=== PATIENT | male | born 1965 | race Caucasian/White ===

== ENCOUNTER 2019-02-25 10:29 | Emergency (ER) | payer OTHER, SELFPAY ==
[2019-02-25 10:30] VITALS: BP 183/118; PULSE 94; RESP 16; TEMP 36.6; O2SAT 97; BMI 24.3
--- NOTE | 2019-02-25 10:32 | ED.RN ---
PT STATES THIS HAPPENED AT WORK BUT CHOSES NOT TO DO WORKMANS COMP.
--- NOTE | 2019-02-25 10:54 | RAD_ITS ---
STUDY: X-RAY - RIGHT HAND REASON FOR EXAM: Male, 53 years old. Laceration of the thumb. TECHNIQUE: 3 view(s) of the hand. COMPARISON: None. FINDINGS: Normal radiocarpal articulation. Normal distal radioulnar joint. Normal visualized carpal bones. Normal carpal articulations Normal carpometacarpal articulation of the thumb. Normal second through fifth carpometacarpal joints. Normal metacarpi. Normal metacarpophalangeal joint of the thumb. Normal interphalangeal joint of the thumb. Normal proximal and distal phalanges of the thumb. Normal metacarpophalangeal joints of the second through fifth fingers. Normal proximal and distal interphalangeal joints of the second through fifth fingers. Normal phalanges of the second through fifth fingers. The soft tissue structures are unremarkable. RAD/Hand Min 3 Views IMPRESSION: Normal x-ray examination of the hand. Electronically Signed: Vladimir Hernandez, at 11:27 EDT , Service support ,
[2019-02-25] MEDS: Diphth,Pertuss(Acell),Tet Vac 0.5 ML Vial IM (11:10)
--- NOTE | 2019-02-25 11:16 | ED.VIS.UPPEX ---
History of Present Illness Informant: Patient Occurred: Today Mechanism/Context: Incised Onset: Today Context: Gradual Onset Timing: Continuous Quality of Pain: Sharp Location: Right thumb Current Severity: Moderate Maximum Severity: Severe Worsened by: Movement and palpation Relieved by: Rest Associated Symptoms: Negative for: Parasthesia, Weakness, Loss of Funtion Narrative: 53-year-old male [id number] presents with a laceration to his right thumb. This occurred just prior to arrival on a slicer. He was slicing meat. He denies any other injuries. His last tetanus was more than 10 years ago. He denies numbness tingling or weakness. He is not on blood thinners. Tetanus Immunization: >10 years Prior similar symptoms: No Recent Illness/Hospitalization: No <Manuel Reich - Last Filed: 02/25/19 11:42> <Kwan Scott - Last Filed: 02/25/19 13:19> Chief Complaint: Laceration Past Medical History Prior records reviewed: Yes Past Medical History: None Surgical History: no surgical history Lives: With Family Smoking Status: Former smoker <Manuel Reich - Last Filed: 02/25/19 11:42> <Kwan Scott - Last Filed: 02/25/19 13:19> - Allergies and Home Meds Allergies/Adverse Reactions: Allergies No Known Allergies Allergy (Verified 04/09/17 19:22) Primary Care Physician: Brian Felder MD [Primary Care Provider] - Review of Systems All systems negative except as indicated Skin: Reports: Wounds Neurological: Denies: Weakness, Parasthesia, Numbness <Manuel Reich - Last Filed: 02/25/19 11:42> Physical Exam Vital Signs/Narrative: Vital Signs Temp Pulse Resp BP Pulse Ox 02/25/19 10:30 98 F 94 16 183/118 H 97 Inital Vital Signs reviewed: Yes Right Hand: - - 5 cm laceration to the right thumb. It is across the finger pad with slight extension into the nail. There is a less than 1 cm laceration through the nail however the nail is still intact and it does not go all the way through the nail. He is able to flex and extend at the IP joint actively normally and the nail remains in place. He has normal capillary refill and sensation. He has normal two-point discrimination. He is not having any significant bony tenderness. There is no pulsatile bleeding. No other injuries are noted. <Manuel Reich - Last Filed: 02/25/19 11:42> Vital Signs/Narrative: Vital Signs Temp Pulse Resp BP Pulse Ox 02/25/19 11:58 84 16 138/72 H 98 02/25/19 10:30 98 F 94 16 183/118 H 97 <Kwan Scott - Last Filed: 02/25/19 13:19> Diagnostic/Tx/Re-eval right hand x-ray unremarkable, interpreted by ED physician - Medical Decision Making Tetanus was updated. X-ray showed no acute fracture. No foreign body. Patient has a thumb laceration that partially extends into the nail. It only minimally does this. The nail is intact. There is no active bleeding from the nail. The laceration on the finger pad was repaired. Patient was placed in a splint and a dressing. Discussed proper wound care as well as signs of infection to monitor for. Advised follow-up in 7 to days for removal or sooner if signs of infection are noted. <Manuel Reich - Last Filed: 02/25/19 11:42> - Medical Decision Making I saw the patient in conjunction with the physician printing bindery assistant. He has a laceration over his right thumb involving the nailbed. X-rays were negative for fracture. Tetanus was updated. Wound was closed by the physician printing bindery assistant. Nailbed repair was discussed. His wound was pretty clean and straight. We felt that it would heal using the nail as splinting. Patient will follow-up with his doctor for recheck. Return for any complications right away. <Kwan Scott - Last Filed: 02/25/19 13:19> Procedures - Lacerations No standard instances Depth: Skin Shape: Linear Prep: Sterile Conditions, Betadine Laceration Repair: Nerve block - digital block right thumb Irrigated (ml): 120 Number of Sutures/[place]: 6 Suture Information: Simple, 5-0 <Manuel Reich - Last Filed: 02/25/19 11:42> ED Disposition <Manuel Reich - Last Filed: 02/25/19 11:42> <Kwan Scott - Last Filed: 02/25/19 13:19> - Plan for ED Patient: Disposition: Home or Assisted Living Diagnosis: Laceration of right thumb with damage to nail Instructions: LACERATION, Extrem (Suture, Staple or Tape) Referrals: Brian Felder MD [Primary Care Provider] -
[2019-02-25 11:58] VITALS: BP 138/72; PULSE 84; RESP 16; O2SAT 98
== END 2019-02-25 12:00 | disposition home or self-care (01) ==
PROVIDERS: Emergency Provider Physician Assistant Medical; Family Provider Family Medicine; PCP Family Medicine
DX: S61.111A Laceration without foreign body of right thumb with damage to nail, initial encounter (principal); W26.8XXA Contact with other sharp object(s), not elsewhere classified, initial encounter; Y93.89 Activity, other specified; Y92.9 Unspecified place or not applicable; Y99.9 Unspecified external cause status; Z23 Encounter for immunization; Z87.891 Personal history of nicotine dependence
CPT/HCPCS: 12002; 73130; 90471; 90715; 99283

== ENCOUNTER 2023-12-25 20:37 | Emergency (ER) | payer OTHER, SELFPAY ==
[2023-12-25] VITALS (11 sets, daily range): BP systolic 55–132; BP diastolic 32–78; PULSE 46–89; RESP 17–87; TEMP 34.4–35.5; O2SAT 50–98
--- NOTE | 2023-12-25 21:01 | CT_ITS ---
INDICATION: head injury EXAMINATION: CT BRAIN - CT Head or Brain W/O Contrast Injection TECHNIQUE: Multiple axial images were obtained of the head without intravenous contrast. A radiation dose optimization technique was used for this scan. IV Contrast dosage and agent: None. RADIATION DOSAGE (If Supplied By Facility): CTDIvol = ( 44.99 ) mGy, DLP = ( 812.98 ) mGycm COMPARISON: No relevant prior comparison study available FINDINGS: BRAIN PARENCHYMA: No intra- or extra-axial hemorrhage. No evidence of acute infarct. No intracranial mass or mass effect. There is preservation of the doll/white matter interface. Posterior fossa structures are unremarkable. No parenchymal abnormality. CSF SPACES: No cerebral volume loss. No hydrocephalus. Basal cisterns are patent. CALVARIUM, SKULL BASE, PARANASAL SINUSES AND MASTOID AIR CELLS: Partially opacified right sphenoid sinus and right maxillary sinus. Remaining paranasal sinuses and mastoid air cells are well-aerated.. There appears to be a fracture at the tip of the nasal bone with associated gas in the soft tissues.. No discrete lytic or blastic abnormalities. ORBITS: Both globes, extraocular muscles, optic nerves and retrobulbar fat appear unremarkable. CT/Brain/Head without Contrast IMPRESSION: No acute intracranial finding. Nasal bone fracture noted with soft tissue gas present. Electronically Signed: Randell Barclay MD at 22:12 EDT ,
[2023-12-25] MEDS: Norepinephrine 8 MG in 0.9% Normal Saline (250mL Bag) 242 ML 9.4 MG CONT INF (21:09)
--- NOTE | 2023-12-25 21:45 | RAD_ITS ---
INDICATION: NG/OG PLACEMENT. EXAMINATION/TECHNIQUE: X-RAY - XR Abdomen 1 View COMPARISON: No relevant prior comparison study available FINDINGS: BOWEL GAS PATTERN: Non-obstructive. No bowel or stomach distention. Enteric tube terminates in the stomach in good position. FREE AIR: Not assessed on a single supine view. ORGANOMEGALY: Not seen. CALCIFICATIONS: No abnormal calcifications observed. LOWER CHEST: No acute pathology. BONES AND SOFT TISSUES: No acute pathology. RAD/Abdomen Single View IMPRESSION: Enteric tube terminating in the stomach. Non-obstructive bowel gas pattern. Electronically Signed: Randell Barclay MD at 22:14 EDT ,
--- NOTE | 2023-12-25 21:45 | RAD_ITS ---
INDICATION: tube placement EXAMINATION/TECHNIQUE: X-RAY - XR Chest 1 View COMPARISON: No relevant prior comparison study available FINDINGS: LINES/DEVICES: Endotracheal tube terminates 4 cm above the laney. Enteric tube terminates in the stomach. LUNGS: The lungs are well expanded. Hazy opacities throughout the right lung. No pleural effusion. No dense consolidation. No pneumothorax. MEDIASTINUM AND CARDIOVASCULAR STRUCTURES: Cardiac silhouette not enlarged. Central airways and mediastinal contour are unremarkable. BONES AND SOFT TISSUES: No acute abnormality. RAD/Chest 1 View (Portable) IMPRESSION: Endotracheal tube terminating 4 cm above the laney. Hazy right lung opacities could be infectious/inflammatory versus asymmetric edema. Aspiration possible. Electronically Signed: Randell Barclay MD at 22:15 EDT ,
--- NOTE | 2023-12-25 22:14 | EKG12_ITS ---
Test Reason : CODE BLUE Blood Pressure : / mmHG Vent. Rate : 063 BPM Atrial Rate : 066 BPM P-R Int : 000 ms QRS Dur : 104 ms QT Int : 548 ms P-R-T Axes : 065 -66 061 degrees QTc Int : 560 ms Critical Test Result: Long QTc , AV Block Sinus rhythm with A-V dissociation and Junctional rhythm with Sinus/atrial capture Left axis deviation Pulmonary disease pattern Possible anterior [place] Abnormal ECG Confirmed by GLENIS ARMENTA, GAYATRI ([id number]), editor department MACHELLE BUTLER ([id number]) on 12/30/2023 10:50:51 A M Referred By: RICHMOND Confirmed By:VALERIA GALVIN MD
[2023-12-25 22:24] LABS: Absolute Lymphocyte Count 2.03 X10^3/uL (0.83-4.51); Absolute Neutrophil Count 1.9 X10^3/uL (2.0-7.7); Basophil# 0.03 X10^3/uL; Basophil% 0.7 % (0-1); Eosinophil# 0.08 X10^3/uL; Eosinophils% 1.8 % (0-5); Hematocrit 46.8 % (40-54); Hemoglobin 13.2 g/dL (13.0-16.5); Lymphocyte # 2.03 X10^3/ul (0.83-4.51); Lymphocyte % 45.4 % (19-41); Mean Corp Hgb Conc 28.2 g/dL (32-36); Mean Corpuscular Hgb 29.4 pg (27.0-32.0); Mean Corpuscular Volume 104.2 fL (80-94); Monocyte# 0.38 X10^3/uL; Monocyte% 8.5 % (0-10); NRBC Flagged by Analyzer 0 % (0-5); Neutrophil # 1.89 X10^3/uL (2.7-7.7); Neutrophil % 42.3 % (47-70); Platelet Count 187 K/mm3 (150-450); RBC Distribution Width CV 13.4 % (11.6-14.6); RBC Distribution Width SD 52.1 fl (35.1-43.9); Red Blood Count 4.49 M/mm3 (4.6-6.2); White Blood Count 4.5 K/mm3 (4.4-11.0)
[2023-12-25 22:28] LABS: International Normalized Ratio 1.6; Prothrombin Time (Protime)PT. 18.6 SECONDS (11.7-14.9)
[2023-12-25 22:29] LABS: Partial Thromboplast Time 35.4 Seconds (24.1-36.2)
--- NOTE | 2023-12-25 22:33 | EX.ED.CRITCA ---
HPI <Dr. Williams Kerr, DO - Last Filed: 12/27/23 10:17> History of Present Illness Chief Complaint: CPR Informant: family and EMS Limited: coma Onset/Context/Timing Onset: Today Context: Sudden Onset Timing: Continuous Narrative Narrative: Patient presents in cardiopulmonary arrest. Patient was hit in the head earlier today by a garage door. Family noted some bleeding from his nose. Family called EMS. Upon EMS arrival, they attempted to ambulate the patient to the bathroom to help get his nose cleaned up. EMS reports that patient had a shaking episode and then went into cardiac arrest on the way to the emergency department. EMS started CPR immediately. Patient was given a milligram of epinephrine by EMS. PFSH <Dr. Williams Kerr, DO - Last Filed: 12/27/23 10:17> [facility], [facility] Medical History unable to obtain unable to obtain Allergy/AdvReac Type Severity Reaction Status Date / Time No Known Allergies Allergy Verified 12/26/23 01:44 Family History unable to obtain Surgical History unable to obtain unable to obtain Social History Smoking Status: Former smoker ROS <Dr. Williams Kerr, DO - Last Filed: 12/27/23 10:17> ROS ED Review of Systems ROS Unobtainable: due to endotracheal tube and due to mental status EXAM <Dr. Williams Kerr, DO - Last Filed: 12/27/23 10:17> Physical Exam Const Vital Signs: 12/25/23 21:09 12/25/23 21:12 12/25/23 21:15 Temperature Temperature Source Pulse Rate 84 76 54 L Pulse Rate [13] Pulse Rate [14] Pulse Rate [1] Pulse Rate [20] Pulse Rate [2] Pulse Rate [3] Pulse Rate [4] Pulse Rate [5] Pulse Rate [8] Respiratory Rate 18 24 H 19 H Respiratory Rate [13] Respiratory Rate [14] Respiratory Rate [1] Respiratory Rate [20] Respiratory Rate [2] Respiratory Rate [3] Respiratory Rate [4] Respiratory Rate [5] Respiratory Rate [8] Respiratory Effort Respiratory Depth Respiratory Pattern Blood Pressure 91/62 72/54 L 57/40 L Blood Pressure [13] Blood Pressure [14] Blood Pressure [1] Blood Pressure [20] Blood Pressure [2] Blood Pressure [3] Blood Pressure [4] Blood Pressure [8] Blood Pressure Mean 71 60 45 Blood Pressure Position Supine Blood Pressure Location Left Arm Pulse Ox 74 68 64 Oxygen Delivery Method Mechanical Ventilator Mechanical Ventilator Mechanical Ventilator Fraction of Inspired Oxygen (FIO2) 100 100 100 12/25/23 21:50 12/25/23 22:00 12/25/23 22:04 Temperature Temperature Source Pulse Rate 75 61 Pulse Rate [13] 64 Pulse Rate [14] 68 Pulse Rate [1] 84 Pulse Rate [20] 87 Pulse Rate [2] 85 Pulse Rate [3] 54 L Pulse Rate [4] 46 L Pulse Rate [5] 68 Pulse Rate [8] 60 Respiratory Rate 23 H 24 H Respiratory Rate [13] 18 Respiratory Rate [14] 18 Respiratory Rate [1] 20 H Respiratory Rate [20] 18 Respiratory Rate [2] 24 H Respiratory Rate [3] 19 H Respiratory Rate [4] 19 H Respiratory Rate [5] 20 H Respiratory Rate [8] 17 Respiratory Effort Respiratory Depth Respiratory Pattern Normal Blood Pressure 72/43 L Blood Pressure [13] 108/63 Blood Pressure [14] 107/62 Blood Pressure [1] 91/62 Blood Pressure [20] 110/78 Blood Pressure [2] 72/54 L Blood Pressure [3] 57/40 L Blood Pressure [4] 55/32 L Blood Pressure [8] 104/61 Blood Pressure Mean 52 Blood Pressure Position Blood Pressure Location Pulse Ox 98 92 Oxygen Delivery Method Mechanical Ventilator Ambu-Bag Fraction of Inspired Oxygen (FIO2) 100 100 12/25/23 22:13 12/25/23 22:50 12/25/23 23:11 Temperature 96 F L Temperature Source Temporal Pulse Rate 88 86 Pulse Rate [13] Pulse Rate [14] Pulse Rate [1] Pulse Rate [20] Pulse Rate [2] Pulse Rate [3] Pulse Rate [4] Pulse Rate [5] Pulse Rate [8] Respiratory Rate 18 87 H Respiratory Rate [13] Respiratory Rate [14] Respiratory Rate [1] Respiratory Rate [20] Respiratory Rate [2] Respiratory Rate [3] Respiratory Rate [4] Respiratory Rate [5] Respiratory Rate [8] Respiratory Effort Respiratory Depth Respiratory Pattern Blood Pressure 121/72 H 128/78 H Blood Pressure [13] Blood Pressure [14] Blood Pressure [1] Blood Pressure [20] Blood Pressure [2] Blood Pressure [3] Blood Pressure [4] Blood Pressure [8] Blood Pressure Mean 88 94 Blood Pressure Position Blood Pressure Location Pulse Ox 91 92 Oxygen Delivery Method Mechanical Ventilator Mechanical Ventilator Fraction of Inspired Oxygen (FIO2) 100 12/25/23 23:14 12/25/23 23:17 12/25/23 23:32 Temperature Temperature Source Pulse Rate 87 Pulse Rate [13] Pulse Rate [14] Pulse Rate [1] Pulse Rate [20] Pulse Rate [2] Pulse Rate [3] Pulse Rate [4] Pulse Rate [5] Pulse Rate [8] Respiratory Rate 25 H Respiratory Rate [13] Respiratory Rate [14] Respiratory Rate [1] Respiratory Rate [20] Respiratory Rate [2] Respiratory Rate [3] Respiratory Rate [4] Respiratory Rate [5] Respiratory Rate [8] Respiratory Effort Mechanically Ventilated Mechanically Ventilated Respiratory Depth Normal Respiratory Pattern Normal Blood Pressure 132/68 H Blood Pressure [13] Blood Pressure [14] Blood Pressure [1] Blood Pressure [20] Blood Pressure [2] Blood Pressure [3] Blood Pressure [4] Blood Pressure [8] Blood Pressure Mean 89 Blood Pressure Position Blood Pressure Location Pulse Ox 91 Oxygen Delivery Method Mechanical Ventilator Fraction of Inspired Oxygen (FIO2) 100 12/25/23 23:33 12/26/23 00:00 12/26/23 00:05 Temperature 94 F L 94.2 F L Temperature Source Core Core Pulse Rate 89 90 Pulse Rate [13] Pulse Rate [14] Pulse Rate [1] Pulse Rate [20] Pulse Rate [2] Pulse Rate [3] Pulse Rate [4] Pulse Rate [5] Pulse Rate [8] Respiratory Rate 26 H 27 H Respiratory Rate [13] Respiratory Rate [14] Respiratory Rate [1] Respiratory Rate [20] Respiratory Rate [2] Respiratory Rate [3] Respiratory Rate [4] Respiratory Rate [5] Respiratory Rate [8] Respiratory Effort Respiratory Depth Respiratory Pattern Blood Pressure 109/74 107/72 Blood Pressure [13] Blood Pressure [14] Blood Pressure [1] Blood Pressure [20] Blood Pressure [2] Blood Pressure [3] Blood Pressure [4] Blood Pressure [8] Blood Pressure Mean 85 83 Blood Pressure Position Blood Pressure Location Pulse Ox 90 74 88 Oxygen Delivery Method Mechanical Ventilator Mechanical Ventilator Mechanical Ventilator Fraction of Inspired Oxygen (FIO2) 100 100 100 12/26/23 00:17 12/26/23 00:17 12/26/23 00:30 Temperature 94.4 F L Temperature Source Core Pulse Rate 92 95 93 Pulse Rate [13] Pulse Rate [14] Pulse Rate [1] Pulse Rate [20] Pulse Rate [2] Pulse Rate [3] Pulse Rate [4] Pulse Rate [5] Pulse Rate [8] Respiratory Rate 18 28 H Respiratory Rate [13] Respiratory Rate [14] Respiratory Rate [1] Respiratory Rate [20] Respiratory Rate [2] Respiratory Rate [3] Respiratory Rate [4] Respiratory Rate [5] Respiratory Rate [8] Respiratory Effort Respiratory Depth Respiratory Pattern Blood Pressure 108/72 118/79 124/72 H Blood Pressure [13] Blood Pressure [14] Blood Pressure [1] Blood Pressure [20] Blood Pressure [2] Blood Pressure [3] Blood Pressure [4] Blood Pressure [8] Blood Pressure Mean 84 92 89 Blood Pressure Position Blood Pressure Location Pulse Ox 78 85 81 Oxygen Delivery Method Mechanical Ventilator Mechanical Ventilator Mechanical Ventilator Fraction of Inspired Oxygen (FIO2) 100 100 100 12/26/23 00:30 12/26/23 01:00 12/26/23 01:30 Temperature 95.2 F L 95.2 F L Temperature Source Core Core Pulse Rate 90 94 94 Pulse Rate [13] Pulse Rate [14] Pulse Rate [1] Pulse Rate [20] Pulse Rate [2] Pulse Rate [3] Pulse Rate [4] Pulse Rate [5] Pulse Rate [8] Respiratory Rate 26 H 26 H 30 H Respiratory Rate [13] Respiratory Rate [14] Respiratory Rate [1] Respiratory Rate [20] Respiratory Rate [2] Respiratory Rate [3] Respiratory Rate [4] Respiratory Rate [5] Respiratory Rate [8] Respiratory Effort Respiratory Depth Respiratory Pattern Normal Blood Pressure 124/80 H 138/80 H Blood Pressure [13] Blood Pressure [14] Blood Pressure [1] Blood Pressure [20] Blood Pressure [2] Blood Pressure [3] Blood Pressure [4] Blood Pressure [8] Blood Pressure Mean 94 99 Blood Pressure Position Blood Pressure Location Pulse Ox 76 85 85 Oxygen Delivery Method Mechanical Ventilator Mechanical Ventilator Fraction of Inspired Oxygen (FIO2) 100 100 100 12/26/23 01:31 12/26/23 01:54 12/26/23 02:00 Temperature 96.4 F L Temperature Source Core Pulse Rate 96 92 93 Pulse Rate [13] Pulse Rate [14] Pulse Rate [1] Pulse Rate [20] Pulse Rate [2] Pulse Rate [3] Pulse Rate [4] Pulse Rate [5] Pulse Rate [8] Respiratory Rate 28 H 30 H 30 H Respiratory Rate [13] Respiratory Rate [14] Respiratory Rate [1] Respiratory Rate [20] Respiratory Rate [2] Respiratory Rate [3] Respiratory Rate [4] Respiratory Rate [5] Respiratory Rate [8] Respiratory Effort Respiratory Depth Respiratory Pattern Blood Pressure 127/79 H 84/41 L 118/76 Blood Pressure [13] Blood Pressure [14] Blood Pressure [1] Blood Pressure [20] Blood Pressure [2] Blood Pressure [3] Blood Pressure [4] Blood Pressure [8] Blood Pressure Mean 95 55 90 Blood Pressure Position Blood Pressure Location Pulse Ox 85 90 97 Oxygen Delivery Method Mechanical Ventilator Mechanical Ventilator Mechanical Ventilator Fraction of Inspired Oxygen (FIO2) 100 100 100 12/26/23 02:14 12/26/23 02:30 12/26/23 02:45 Temperature 95.9 F L 96.5 F L 96.8 F L Temperature Source Core Core Core Pulse Rate 98 94 94 Pulse Rate [13] Pulse Rate [14] Pulse Rate [1] Pulse Rate [20] Pulse Rate [2] Pulse Rate [3] Pulse Rate [4] Pulse Rate [5] Pulse Rate [8] Respiratory Rate 26 H 31 H 29 H Respiratory Rate [13] Respiratory Rate [14] Respiratory Rate [1] Respiratory Rate [20] Respiratory Rate [2] Respiratory Rate [3] Respiratory Rate [4] Respiratory Rate [5] Respiratory Rate [8] Respiratory Effort Respiratory Depth Respiratory Pattern Blood Pressure 154/90 H 109/74 103/72 Blood Pressure [13] Blood Pressure [14] Blood Pressure [1] Blood Pressure [20] Blood Pressure [2] Blood Pressure [3] Blood Pressure [4] Blood Pressure [8] Blood Pressure Mean 111 85 82 Blood Pressure Position Blood Pressure Location Pulse Ox 93 95 98 Oxygen Delivery Method Mechanical Ventilator Mechanical Ventilator Mechanical Ventilator Fraction of Inspired Oxygen (FIO2) 100 100 100 12/26/23 03:00 12/26/23 03:00 12/26/23 04:00 Temperature 97.1 F L 97.1 F L 97.1 F L Temperature Source Core Core Core Pulse Rate 94 95 94 Pulse Rate [13] Pulse Rate [14] Pulse Rate [1] Pulse Rate [20] Pulse Rate [2] Pulse Rate [3] Pulse Rate [4] Pulse Rate [5] Pulse Rate [8] Respiratory Rate 26 H 28 H 17 Respiratory Rate [13] Respiratory Rate [14] Respiratory Rate [1] Respiratory Rate [20] Respiratory Rate [2] Respiratory Rate [3] Respiratory Rate [4] Respiratory Rate [5] Respiratory Rate [8] Respiratory Effort Respiratory Depth Respiratory Pattern Blood Pressure 128/82 H 121/83 H 118/79 Blood Pressure [13] Blood Pressure [14] Blood Pressure [1] Blood Pressure [20] Blood Pressure [2] Blood Pressure [3] Blood Pressure [4] Blood Pressure [8] Blood Pressure Mean 97 95 92 Blood Pressure Position Blood Pressure Location Pulse Ox 98 100 100 Oxygen Delivery Method Mechanical Ventilator Mechanical Ventilator Mechanical Ventilator Fraction of Inspired Oxygen (FIO2) 100 100 12/26/23 04:26 Temperature 97.1 F L Temperature Source Pulse Rate 94 Pulse Rate [13] Pulse Rate [14] Pulse Rate [1] Pulse Rate [20] Pulse Rate [2] Pulse Rate [3] Pulse Rate [4] Pulse Rate [5] Pulse Rate [8] Respiratory Rate 17 Respiratory Rate [13] Respiratory Rate [14] Respiratory Rate [1] Respiratory Rate [20] Respiratory Rate [2] Respiratory Rate [3] Respiratory Rate [4] Respiratory Rate [5] Respiratory Rate [8] Respiratory Effort Respiratory Depth Respiratory Pattern Blood Pressure 118/79 Blood Pressure [13] Blood Pressure [14] Blood Pressure [1] Blood Pressure [20] Blood Pressure [2] Blood Pressure [3] Blood Pressure [4] Blood Pressure [8] Blood Pressure Mean 92 Blood Pressure Position Blood Pressure Location Pulse Ox 100 Oxygen Delivery Method Fraction of Inspired Oxygen (FIO2) Positive well nourished and well developed General Appearance ED: well developed Neck no JVD Cardio Cardio Narrative: Patient has an irregular wide-complex rhythm on the monitor. Patient had intermittent carotid and femoral pulses. Rhythm: abnormal rhythm GI non-distended Palpation: soft Neuro Neuro Narrative: Patient was unresponsive. <Dr. Wilmar Otto MD - Last Filed: 12/26/23 02:35> Physical Exam Const Vital Signs: 12/25/23 21:09 12/25/23 21:12 12/25/23 21:15 Temperature Temperature Source Pulse Rate 84 76 54 L Pulse Rate [13] Pulse Rate [14] Pulse Rate [1] Pulse Rate [20] Pulse Rate [2] Pulse Rate [3] Pulse Rate [4] Pulse Rate [5] Pulse Rate [8] Respiratory Rate 18 24 H 19 H Respiratory Rate [13] Respiratory Rate [14] Respiratory Rate [1] Respiratory Rate [20] Respiratory Rate [2] Respiratory Rate [3] Respiratory Rate [4] Respiratory Rate [5] Respiratory Rate [8] Respiratory Effort Respiratory Depth Respiratory Pattern Blood Pressure 91/62 72/54 L 57/40 L Blood Pressure [13] Blood Pressure [14] Blood Pressure [1] Blood Pressure [20] Blood Pressure [2] Blood Pressure [3] Blood Pressure [4] Blood Pressure [8] Blood Pressure Mean 71 60 45 Blood Pressure Position Supine Blood Pressure Location Left Arm Pulse Ox 74 68 64 Oxygen Delivery Method Mechanical Ventilator Mechanical Ventilator Mechanical Ventilator Fraction of Inspired Oxygen (FIO2) 100 100 100 12/25/23 21:50 12/25/23 22:00 12/25/23 22:04 Temperature Temperature Source Pulse Rate 75 61 Pulse Rate [13] 64 Pulse Rate [14] 68 Pulse Rate [1] 84 Pulse Rate [20] 87 Pulse Rate [2] 85 Pulse Rate [3] 54 L Pulse Rate [4] 46 L Pulse Rate [5] 68 Pulse Rate [8] 60 Respiratory Rate 23 H 24 H Respiratory Rate [13] 18 Respiratory Rate [14] 18 Respiratory Rate [1] 20 H Respiratory Rate [20] 18 Respiratory Rate [2] 24 H Respiratory Rate [3] 19 H Respiratory Rate [4] 19 H Respiratory Rate [5] 20 H Respiratory Rate [8] 17 Respiratory Effort Respiratory Depth Respiratory Pattern Normal Blood Pressure 72/43 L Blood Pressure [13] 108/63 Blood Pressure [14] 107/62 Blood Pressure [1] 91/62 Blood Pressure [20] 110/78 Blood Pressure [2] 72/54 L Blood Pressure [3] 57/40 L Blood Pressure [4] 55/32 L Blood Pressure [8] 104/61 Blood Pressure Mean 52 Blood Pressure Position Blood Pressure Location Pulse Ox 98 92 Oxygen Delivery Method Mechanical Ventilator Ambu-Bag Fraction of Inspired Oxygen (FIO2) 100 100 12/25/23 22:13 12/25/23 22:50 12/25/23 23:11 Temperature 96 F L Temperature Source Temporal Pulse Rate 88 86 Pulse Rate [13] Pulse Rate [14] Pulse Rate [1] Pulse Rate [20] Pulse Rate [2] Pulse Rate [3] Pulse Rate [4] Pulse Rate [5] Pulse Rate [8] Respiratory Rate 18 87 H Respiratory Rate [13] Respiratory Rate [14] Respiratory Rate [1] Respiratory Rate [20] Respiratory Rate [2] Respiratory Rate [3] Respiratory Rate [4] Respiratory Rate [5] Respiratory Rate [8] Respiratory Effort Respiratory Depth Respiratory Pattern Blood Pressure 121/72 H 128/78 H Blood Pressure [13] Blood Pressure [14] Blood Pressure [1] Blood Pressure [20] Blood Pressure [2] Blood Pressure [3] Blood Pressure [4] Blood Pressure [8] Blood Pressure Mean 88 94 Blood Pressure Position Blood Pressure Location Pulse Ox 91 92 Oxygen Delivery Method Mechanical Ventilator Mechanical Ventilator Fraction of Inspired Oxygen (FIO2) 100 12/25/23 23:14 12/25/23 23:17 12/25/23 23:32 Temperature Temperature Source Pulse Rate 87 Pulse Rate [13] Pulse Rate [14] Pulse Rate [1] Pulse Rate [20] Pulse Rate [2] Pulse Rate [3] Pulse Rate [4] Pulse Rate [5] Pulse Rate [8] Respiratory Rate 25 H Respiratory Rate [13] Respiratory Rate [14] Respiratory Rate [1] Respiratory Rate [20] Respiratory Rate [2] Respiratory Rate [3] Respiratory Rate [4] Respiratory Rate [5] Respiratory Rate [8] Respiratory Effort Mechanically Ventilated Mechanically Ventilated Respiratory Depth Normal Respiratory Pattern Normal Blood Pressure 132/68 H Blood Pressure [13] Blood Pressure [14] Blood Pressure [1] Blood Pressure [20] Blood Pressure [2] Blood Pressure [3] Blood Pressure [4] Blood Pressure [8] Blood Pressure Mean 89 Blood Pressure Position Blood Pressure Location Pulse Ox 91 Oxygen Delivery Method Mechanical Ventilator Fraction of Inspired Oxygen (FIO2) 100 12/25/23 23:33 12/26/23 00:00 12/26/23 00:05 Temperature 94 F L 94.2 F L Temperature Source Core Core Pulse Rate 89 90 Pulse Rate [13] Pulse Rate [14] Pulse Rate [1] Pulse Rate [20] Pulse Rate [2] Pulse Rate [3] Pulse Rate [4] Pulse Rate [5] Pulse Rate [8] Respiratory Rate 26 H 27 H Respiratory Rate [13] Respiratory Rate [14] Respiratory Rate [1] Respiratory Rate [20] Respiratory Rate [2] Respiratory Rate [3] Respiratory Rate [4] Respiratory Rate [5] Respiratory Rate [8] Respiratory Effort Respiratory Depth Respiratory Pattern Blood Pressure 109/74 107/72 Blood Pressure [13] Blood Pressure [14] Blood Pressure [1] Blood Pressure [20] Blood Pressure [2] Blood Pressure [3] Blood Pressure [4] Blood Pressure [8] Blood Pressure Mean 85 83 Blood Pressure Position Blood Pressure Location Pulse Ox 90 74 88 Oxygen Delivery Method Mechanical Ventilator Mechanical Ventilator Mechanical Ventilator Fraction of Inspired Oxygen (FIO2) 100 100 100 12/26/23 00:17 12/26/23 00:17 12/26/23 00:30 Temperature 94.4 F L Temperature Source Core Pulse Rate 92 95 93 Pulse Rate [13] Pulse Rate [14] Pulse Rate [1] Pulse Rate [20] Pulse Rate [2] Pulse Rate [3] Pulse Rate [4] Pulse Rate [5] Pulse Rate [8] Respiratory Rate 18 28 H Respiratory Rate [13] Respiratory Rate [14] Respiratory Rate [1] Respiratory Rate [20] Respiratory Rate [2] Respiratory Rate [3] Respiratory Rate [4] Respiratory Rate [5] Respiratory Rate [8] Respiratory Effort Respiratory Depth Respiratory Pattern Blood Pressure 108/72 118/79 124/72 H Blood Pressure [13] Blood Pressure [14] Blood Pressure [1] Blood Pressure [20] Blood Pressure [2] Blood Pressure [3] Blood Pressure [4] Blood Pressure [8] Blood Pressure Mean 84 92 89 Blood Pressure Position Blood Pressure Location Pulse Ox 78 85 81 Oxygen Delivery Method Mechanical Ventilator Mechanical Ventilator Mechanical Ventilator Fraction of Inspired Oxygen (FIO2) 100 100 100 12/26/23 00:30 12/26/23 01:00 12/26/23 01:30 Temperature 95.2 F L 95.2 F L Temperature Source Core Core Pulse Rate 90 94 94 Pulse Rate [13] Pulse Rate [14] Pulse Rate [1] Pulse Rate [20] Pulse Rate [2] Pulse Rate [3] Pulse Rate [4] Pulse Rate [5] Pulse Rate [8] Respiratory Rate 26 H 26 H 30 H Respiratory Rate [13] Respiratory Rate [14] Respiratory Rate [1] Respiratory Rate [20] Respiratory Rate [2] Respiratory Rate [3] Respiratory Rate [4] Respiratory Rate [5] Respiratory Rate [8] Respiratory Effort Respiratory Depth Respiratory Pattern Normal Blood Pressure 124/80 H 138/80 H Blood Pressure [13] Blood Pressure [14] Blood Pressure [1] Blood Pressure [20] Blood Pressure [2] Blood Pressure [3] Blood Pressure [4] Blood Pressure [8] Blood Pressure Mean 94 99 Blood Pressure Position Blood Pressure Location Pulse Ox 76 85 85 Oxygen Delivery Method Mechanical Ventilator Mechanical Ventilator Fraction of Inspired Oxygen (FIO2) 100 100 100 12/26/23 01:31 12/26/23 01:54 12/26/23 02:00 Temperature 96.4 F L Temperature Source Core Pulse Rate 96 92 93 Pulse Rate [13] Pulse Rate [14] Pulse Rate [1] Pulse Rate [20] Pulse Rate [2] Pulse Rate [3] Pulse Rate [4] Pulse Rate [5] Pulse Rate [8] Respiratory Rate 28 H 30 H 30 H Respiratory Rate [13] Respiratory Rate [14] Respiratory Rate [1] Respiratory Rate [20] Respiratory Rate [2] Respiratory Rate [3] Respiratory Rate [4] Respiratory Rate [5] Respiratory Rate [8] Respiratory Effort Respiratory Depth Respiratory Pattern Blood Pressure 127/79 H 84/41 L 118/76 Blood Pressure [13] Blood Pressure [14] Blood Pressure [1] Blood Pressure [20] Blood Pressure [2] Blood Pressure [3] Blood Pressure [4] Blood Pressure [8] Blood Pressure Mean 95 55 90 Blood Pressure Position Blood Pressure Location Pulse Ox 85 90 97 Oxygen Delivery Method Mechanical Ventilator Mechanical Ventilator Mechanical Ventilator Fraction of Inspired Oxygen (FIO2) 100 100 100 12/26/23 02:14 12/26/23 02:30 12/26/23 02:45 Temperature 95.9 F L 96.5 F L 96.8 F L Temperature Source Core Core Core Pulse Rate 98 94 94 Pulse Rate [13] Pulse Rate [14] Pulse Rate [1] Pulse Rate [20] Pulse Rate [2] Pulse Rate [3] Pulse Rate [4] Pulse Rate [5] Pulse Rate [8] Respiratory Rate 26 H 31 H 29 H Respiratory Rate [13] Respiratory Rate [14] Respiratory Rate [1] Respiratory Rate [20] Respiratory Rate [2] Respiratory Rate [3] Respiratory Rate [4] Respiratory Rate [5] Respiratory Rate [8] Respiratory Effort Respiratory Depth Respiratory Pattern Blood Pressure 154/90 H 109/74 103/72 Blood Pressure [13] Blood Pressure [14] Blood Pressure [1] Blood Pressure [20] Blood Pressure [2] Blood Pressure [3] Blood Pressure [4] Blood Pressure [8] Blood Pressure Mean 111 85 82 Blood Pressure Position Blood Pressure Location Pulse Ox 93 95 98 Oxygen Delivery Method Mechanical Ventilator Mechanical Ventilator Mechanical Ventilator Fraction of Inspired Oxygen (FIO2) 100 100 100 12/26/23 03:00 12/26/23 03:00 12/26/23 04:00 Temperature 97.1 F L 97.1 F L 97.1 F L Temperature Source Core Core Core Pulse Rate 94 95 94 Pulse Rate [13] Pulse Rate [14] Pulse Rate [1] Pulse Rate [20] Pulse Rate [2] Pulse Rate [3] Pulse Rate [4] Pulse Rate [5] Pulse Rate [8] Respiratory Rate 26 H 28 H 17 Respiratory Rate [13] Respiratory Rate [14] Respiratory Rate [1] Respiratory Rate [20] Respiratory Rate [2] Respiratory Rate [3] Respiratory Rate [4] Respiratory Rate [5] Respiratory Rate [8] Respiratory Effort Respiratory Depth Respiratory Pattern Blood Pressure 128/82 H 121/83 H 118/79 Blood Pressure [13] Blood Pressure [14] Blood Pressure [1] Blood Pressure [20] Blood Pressure [2] Blood Pressure [3] Blood Pressure [4] Blood Pressure [8] Blood Pressure Mean 97 95 92 Blood Pressure Position Blood Pressure Location Pulse Ox 98 100 100 Oxygen Delivery Method Mechanical Ventilator Mechanical Ventilator Mechanical Ventilator Fraction of Inspired Oxygen (FIO2) 100 100 12/26/23 04:26 Temperature 97.1 F L Temperature Source Pulse Rate 94 Pulse Rate [13] Pulse Rate [14] Pulse Rate [1] Pulse Rate [20] Pulse Rate [2] Pulse Rate [3] Pulse Rate [4] Pulse Rate [5] Pulse Rate [8] Respiratory Rate 17 Respiratory Rate [13] Respiratory Rate [14] Respiratory Rate [1] Respiratory Rate [20] Respiratory Rate [2] Respiratory Rate [3] Respiratory Rate [4] Respiratory Rate [5] Respiratory Rate [8] Respiratory Effort Respiratory Depth Respiratory Pattern Blood Pressure 118/79 Blood Pressure [13] Blood Pressure [14] Blood Pressure [1] Blood Pressure [20] Blood Pressure [2] Blood Pressure [3] Blood Pressure [4] Blood Pressure [8] Blood Pressure Mean 92 Blood Pressure Position Blood Pressure Location Pulse Ox 100 Oxygen Delivery Method Fraction of Inspired Oxygen (FIO2) <Dr. Modesto Le, DO - Last Filed: 12/26/23 05:20> Physical Exam Const Vital Signs: 12/25/23 21:09 12/25/23 21:12 12/25/23 21:15 Temperature Temperature Source Pulse Rate 84 76 54 L Pulse Rate [13] Pulse Rate [14] Pulse Rate [1] Pulse Rate [20] Pulse Rate [2] Pulse Rate [3] Pulse Rate [4] Pulse Rate [5] Pulse Rate [8] Respiratory Rate 18 24 H 19 H Respiratory Rate [13] Respiratory Rate [14] Respiratory Rate [1] Respiratory Rate [20] Respiratory Rate [2] Respiratory Rate [3] Respiratory Rate [4] Respiratory Rate [5] Respiratory Rate [8] Respiratory Effort Respiratory Depth Respiratory Pattern Blood Pressure 91/62 72/54 L 57/40 L Blood Pressure [13] Blood Pressure [14] Blood Pressure [1] Blood Pressure [20] Blood Pressure [2] Blood Pressure [3] Blood Pressure [4] Blood Pressure [8] Blood Pressure Mean 71 60 45 Blood Pressure Position Supine Blood Pressure Location Left Arm Pulse Ox 74 68 64 Oxygen Delivery Method Mechanical Ventilator Mechanical Ventilator Mechanical Ventilator Fraction of Inspired Oxygen (FIO2) 100 100 100 12/25/23 21:50 12/25/23 22:00 12/25/23 22:04 Temperature Temperature Source Pulse Rate 75 61 Pulse Rate [13] 64 Pulse Rate [14] 68 Pulse Rate [1] 84 Pulse Rate [20] 87 Pulse Rate [2] 85 Pulse Rate [3] 54 L Pulse Rate [4] 46 L Pulse Rate [5] 68 Pulse Rate [8] 60 Respiratory Rate 23 H 24 H Respiratory Rate [13] 18 Respiratory Rate [14] 18 Respiratory Rate [1] 20 H Respiratory Rate [20] 18 Respiratory Rate [2] 24 H Respiratory Rate [3] 19 H Respiratory Rate [4] 19 H Respiratory Rate [5] 20 H Respiratory Rate [8] 17 Respiratory Effort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
[2023-12-25 22:39] LABS: Allen Test Positive; Base Excess -27 mmol/L (-2 to +2); Blood Gas Specimen Type ART; Mode AC; O2 Delivery Device Adult Vent; PEEP 5; PO2 80 mmHG (75-100); RR 18; SITE R Radial; SO2 81 % (95-99); Total Carbon Dioxide 8 mmol/L; pCO2 42.3 mmHg (35-45); pH 6.83 (7.35-7.45)
[2023-12-25 22:39] LABS: ALB/GLOB Ratio 1.1 RATIO (0.9-2.4); AST(SGOT) 218 U/L (15-37); Alanine Aminotransfer ALT/SGPT 206 U/L (16-61); Albumin, Serum 3.4 g/dL (3.2-5.0); Alkaline Phosphatase 57 U/L (45-117); Anion Gap 26 (5-15); BUN 18 mg/dL (7-18); BUN/Creat Ratio 13.6 RATIO (10-20); Calcium,Total 9.5 mg/dL (8.5-10.1); Chloride 106 mmol/L (98-107); Creatinine, Serum 1.32 mg/dL (0.70-1.30); EST Glomerular Filtration Rate 59 mL/min (>60); Est Glom Filt Rate - Afr Amer 71 mL/min (>60); Globulin 3.1 g/dL (2.2-4.2); Glucose 211 mg/dL (74-106); Potassium 4.1 mmol/L (3.5-5.1); Protein, Total 6.5 g/dL (6.4-8.2); Sodium Level 143 mmol/L (136-145); Troponin-I HS (w/2H Reflex) 6 pg/mL (3.0-78.0)
--- NOTE | 2023-12-25 23:12 | EKG12_ITS ---
Test Reason : Blood Pressure : / mmHG Vent. Rate : 089 BPM Atrial Rate : 089 BPM P-R Int : 200 ms QRS Dur : 124 ms QT Int : 456 ms P-R-T Axes : 058 050 075 degrees QTc Int : 554 ms Critical Test Result: Long QTc , STEMI Normal sinus rhythm Anteroseptal infarct , possibly acute ACUTE GA / STEMI Abnormal ECG Confirmed by GLENIS ARMENTA, GAYATRI ([id number]), web editor MACHELLE BUTLER ([id number]) on 12/30/2023 10:51:21 A M Referred By: RICHMOND Confirmed By:VALERIA GALVIN MD
--- NOTE | 2023-12-25 23:16 | CT_ITS ---
INDICATION: Injury/Pain EXAMINATION: CT SPINE - CT Spine Cervical W/O Contrast Injection COMPARISON: None. A radiation dose optimization technique was used for this scan. Findings: Serial CT axial images through the cervical spine, with coronal and sagittal reformatted series. BONES: No evidence of cervical spine fracture or subluxation. No concerning bony lesion or abnormal sclerosis to suggest lesion. Sphenoethmoid sinus mucosal thickening. DISCS/JOINTS: Moderate to severe multilevel bilateral mid cervical neuroforaminal narrowing. There is also at least moderate central bony spinal canal stenosis at the C6-C7 and C5-C6 levels secondary to posterior disc osteophyte formation. SOFT TISSUES: Enteric tube tip terminates off the inferior margin of the image. Endotracheal tube tip terminates at the C3-C4 level. Severe diffuse biapical groundglass airspace disease, with dense consolidation posteriorly, only partially imaged. CT/Spine Cervical without Contras IMPRESSION: Endotracheal tube tip terminates at the C3-C4 level. Severe diffuse biapical groundglass airspace disease, with dense consolidation posteriorly, only partially imaged. Cervical spine without evidence of acute fracture. Electronically Signed: Manuel Cash MD at 0:43 EDT ,
[2023-12-25 23:44] LABS: Mucous, Urine 0 SEEN /hpf (<or=2+); Squamous Epithelial Cells - UA 0 SEEN /hpf (0-5); White Blood Cells 0 SEEN /hpf (0-5)
[2023-12-25 23:54] LABS: Color, Urine Yellow (Yellow); Glucose, Dipstick 50 mg/dl (Normal); Ketone-Dipstick Negative (Negative); Leukocyte Esterase-Dipstick Negative /ul (Negative); Nitrite-Dipstick Negative (Negative); Occult Blood-Urine 250 /ul (Negative); Protein-Dipstick 100 mg/dl (Negative); Specific Gravity, Urine 1.025 (1.002-1.030); Urine Bilirubin Dipstick Negative (Negative); Urine Clarity Cloudy (Clear); Urine Urobilinogen Normal (Normal)
[2023-12-26] VITALS (15 sets, daily range): BP systolic 84–154; BP diastolic 41–90; PULSE 90–98; RESP 17–31; TEMP 34.6–36.2; O2SAT 74–100
[2023-12-26 00:06] LABS: Amphetamine Urine VISTA NEGATIVE (<1000 ng/mL); Barbiturate Urine VISTA NEGATIVE (< 200 ng/mL); Benzodiazepine Urine VISTA NEGATIVE (< 200 ng/mL); Cocaine Urine VISTA POSITIVE (< 300 ng/mL); Ecstacy Urine VISTA NEGATIVE (< 500 ng/mL); Methadone Urine VISTA NEGATIVE (< 300 ng/mL); PCP Urine VISTA NEGATIVE (< 25 ng/mL); THC Urine VISTA NEGATIVE (< 50 ng/mL); Vista UDS pH Range 5
[2023-12-26 00:09] LABS: Red Blood Cells-Urine 50-100 SEEN /hpf (0-5); Renal Epithelial Cells 0-5 SEEN /hpf (0-5)
--- NOTE | 2023-12-26 00:09 | NURSING ---
Bracelet removed for ct and given to family member (Gladys).
[2023-12-26 00:10] LABS: Bacteria 1+ /hpf (None Seen)
[2023-12-26] MEDS: 0.9% Normal Saline (1000mL) 1,000 ML 1000 ML IV ×2 (00:11→00:18)
[2023-12-26] MEDS: Sodium Bicarbonate 50 MEQ in Dextrose 5%-Water (1000mL Bag) 1,000 ML 100 MEQ IV (00:11)
[2023-12-26 00:19] LABS: Reflex Troponin-HS? (from REC) Y
[2023-12-26] MEDS: fentaNYL 100 MCG/2 ML Ampul 50 MCG IV (00:44)
--- NOTE | 2023-12-26 00:58 | ED.RN ---
Patient arrived by squad at 2037. Patient was coding on arrival. First pulse found was a 2056 and was lost again at 2101 when patient went into PEA. Pulse was gained again at 2105 and lost at 2119 but regained again 2123. The code ended at 2123. The patient received 15 does of epinephrine, 7 bolus, 2 mg of atropine and 2 amps of bicarb. The patient was intubated and had an OG placed. A temp shah was placed as well. Family has been updated.
[2023-12-26] MEDS: fentaNYL drip 100 ML 2.5 MCG CONT INF (01:25)
--- NOTE | 2023-12-26 01:28 | EKG12_ITS ---
Test Reason : REPEAT Blood Pressure : / mmHG Vent. Rate : 087 BPM Atrial Rate : 087 BPM P-R Int : 186 ms QRS Dur : 136 ms QT Int : 486 ms P-R-T Axes : 037 051 049 degrees QTc Int : 584 ms Critical Test Result: Long QTc Normal sinus rhythm Brugada pattern, type 1 vs Acute [place] Non-specific intra-ventricular conduction block Abnormal ECG Confirmed by GLENIS ARMENTA, GAYATRI ([id number]), editorial cartoonist MACHELLE BUTLER ([id number]) on 12/30/2023 10:53:42 A M Referred By: RICHMOND Confirmed By:VALERIA GALVIN MD
--- NOTE | 2023-12-26 02:36 | RAD_ITS ---
INDICATION: Line placement and evaluate for pneumothorax EXAMINATION/TECHNIQUE: X-RAY - XR Chest 1 View COMPARISON: None chest radiograph previous day. Findings: Single frontal view of the chest. Significant diffuse bilateral perihilar central hazy airspace disease. Right central venous catheter tip overlies the right atrium. Endotracheal tube tip is approximately 32 mm from the laney. Enteric tube to overlies central abdomen, likely mid stomach. Partially imaged dilated small bowel loops within the left upper quadrant. Cardiomediastinal silhouette is not enlarged. No pleural effusion. No pneumothorax. BONES: Osseous structures are unremarkable for age. RAD/Chest 1 View (Portable) IMPRESSION: Endotracheal tube tip is approximately 32 mm from the laney. Right central venous catheter tip overlies the right atrium. Significant diffuse bilateral perihilar central hazy airspace disease, to include pulmonary edema or developing pneumonia. Partially imaged dilated small bowel loops within the left upper quadrant, ileus versus bowel obstruction. Electronically Signed: Manuel Cash MD at 4:36 EDT ,
[2023-12-26 02:44] LABS: Troponin-I HS 322 pg/mL (3.0-78.0)
[2023-12-26 02:55] LABS: Reflex Lactate? Y
--- NOTE | 2023-12-26 04:03 | ED.RN ---
Patient being transported with our fentanyl and Levophed.
--- NOTE | 2023-12-26 04:06 | NURSING ---
Called report to Rodrigo in [facility].
== END 2023-12-26 04:35 | disposition short-term general hospital (02) ==
PROVIDERS: Emergency Provider Emergency Medicine; PCP Family Medicine; Visit Provider Emergency Medicine
DX: I21.4 Non-ST elevation (NSTEMI) myocardial infarction (principal); R56.9 Unspecified convulsions; S02.2XXA Fracture of nasal bones, initial encounter for closed fracture; E87.20 Acidosis, unspecified; Z87.891 Personal history of nicotine dependence; J81.1 Chronic pulmonary edema
CPT/HCPCS: 36556; 31500; 31720; 36600; 51702; 70450; 71045; 72125; 74018; 80053; 80307; 81001; 82077; 82803; 83605; 84484; 85025; 85610; 85730; 92950; 93005; 94002; 94003; 96365; 96366; 96367; 96368; 96375; 99285; J7030; J7050; A4216